=== PATIENT | male | born 2000 | race Caucasian/White ===

== ENCOUNTER 2020-03-11 16:34 | Emergency (ER) | payer MEDICAID ==
--- NOTE | 2020-03-11 17:11 | ER Document Report ---
HPI - HPI Patient complains to provider of: Right knee injury Time Seen by Provider: 03/11/20 17:04 Onset: Yesterday Onset/Duration: Sudden Quality of pain: Achy Pain Level: 2 Context: Patient states that he was tossing a baseball yesterday and planted his foot. Patient states that his left kneecap came out of place and moved medially. Patient states that he sat down bent his knee and felt the kneecap go back into proper alignment. Patient states that earlier he had been pushing shopping carts while at work in a vehicle backed into the carts and he had pain to the right knee although does not recall any injury to the left knee at the time. Patient is uncertain if this incident has anything to do with his kneecap dislocating. Patient states that his kneecap has dislocated about 15 times although this is the most severe incident. Associated Symptoms: Other - Left knee pain Exacerbated by: Standing, Movement, Walking Relieved by: Denies Similar symptoms previously: Yes Recently seen / treated by doctor: No - ROS ROS below otherwise negative: Yes Systems Reviewed and Negative: Yes All other systems reviewed and negative - NEURO Neurology: DENIES: Weakness - GASTROINTESTINAL Gastrointestinal: DENIES: Nausea - MUSCULOSKELETAL Musculoskeletal: REPORTS: Extremity pain, Swelling - DERM Skin Color: Normal Skin Problems: None Past Medical History - General Information source: Patient - Social History Smoking Status: Never Smoker Frequency of alcohol use: None Drug Abuse: None Occupation: [employer] Lives with: Family Family History: Reviewed & Not Pertinent - Medical History Medical History: Other - Ehler Danlos syndrome Surgical Hx: Negative Vertical Provider Document - CONSTITUTIONAL Agree With Documented VS: Yes Exam Limitations: No Limitations General Appearance: WD/WN, No Apparent Distress - HEENT HEENT: Atraumatic, Normocephalic - NECK Neck: Normal Inspection - RESPIRATORY Respiratory: No Respiratory Distress - CARDIOVASCULAR Pulses: Normal: Posterior tibial, Dorsalis pedis - MUSCULOSKELETAL/EXTREMETIES Musculoskeletal/Extremeties: MAEW, Tender - Left knee joint tenderness to the medial compartment, patient with joint effusion, patellar tendon intact, no la xity with varus or valgus maneuvers, Edema. negative: Eccymosis - NEURO Level of Consciousness: Awake, Alert, Appropriate Motor/Sensory: No Motor Deficit - DERM Integumentary: Warm, Dry, No Rash Course - Re-evaluation Re-evalutation: 03/11/20 18:21 Patient with left knee joint effusion, no fracture or dislocation, will immobilize and refer to orthopedics for definitive treatment at this time. - Vital Signs Vital signs: Temp Pulse Resp BP Pulse Ox 98.3 F 82 16 123/68 97 03/11/20 17:02 03/11/20 17:02 03/11/20 17:02 03/11/20 17:02 03/11/20 17:02 - Diagnostic Test Radiology reviewed: Image reviewed, Reports reviewed Procedures - Immobilization Left Knee Pre-Proc Neuro Vasc Exam: Normal Immobilizer type: Benedict wrap, Knee immobilizer Performed by: PCT Post-Proc Neuro Vasc Exam: Normal Alignment checked and good: Yes Discharge - Discharge Clinical Impression: Knee effusion, left Condition: Stable Disposition: HOME, SELF-CARE Instructions: Use of Crutches ([facility]), Ice & Elevation ([facility]), Suspected Internal Knee Injury ([facility]), Knee Effusion ([facility]), Knee Immobilizing Splint ([facility]) Additional Instructions: Return immediately for any new or worsening symptoms Followup with your primary care provider, call tomorrow to make a followup appointment Weightbearing as tolerated Follow-up with orthopedics for further evaluation, call tomorrow to make a follow-up appointment Prescriptions: Naproxen [Naprosyn 250 Nmg Tablet] 1 tab PO BID #14 tablet Forms: Return to Work Referrals: ELMIRA POTTS MD [COMMUNITY BASED STAFF] - Follow up as needed [facility] [Provider Group] - Follow up tomorrow
--- NOTE | 2020-03-11 17:46 | RADIOLOGY REPORT (SQ) ---
EXAM DESCRIPTION: KNEE LEFT 3 VIEWS IMAGES COMPLETED DATE/TIME: 03/11/2020 5:24 pm REASON FOR STUDY: patella dislocated, L knee pain COMPARISON: None. NUMBER OF VIEWS: Three views. TECHNIQUE: AP, lateral, and sunrise patella radiographic images acquired of the left knee. LIMITATIONS: None. FINDINGS: MINERALIZATION: Normal. BONES: No acute fracture or dislocation. No worrisome bone lesions. JOINT: There is a significant joint effusion. SOFT TISSUES: No soft tissue swelling. No radio-opaque foreign body. OTHER: No other significant finding. IMPRESSION: Joint effusion. No fracture. TECHNICAL DOCUMENTATION: JOB ID: [id number] 2010 [employer]- All Rights Reserved Reading location - IP/workstation name: [email or web address]
[2020-03-11 19:04] VITALS: BP 122/70
== END 2020-03-11 19:05 | disposition home or self-care (01) ==
LOC: ER 16:34
DX: M25.462 Effusion, left knee (principal)
CPT/HCPCS: 99283